=== PATIENT | male | born 1960 | race Caucasian/White ===

== ENCOUNTER 2019-05-11 15:16 | Inpatient (IN) ==
[2019-05-11] MEDS ORDERED: methylPREDNISolone SOD SUC 125 MG/2 ML VIAL IV STA (16:05)
[2019-05-11] MEDS ORDERED: ONDANSETRON 4 MG/2 ML VIAL IV STA (16:05)
[2019-05-11] MEDS ORDERED: AZITHROMYCIN INJ 500 MG in SODIUM CHLORIDE 0.9% 250 ML IV STA (16:15)
[2019-05-11] MEDS ORDERED: cefTRIAXone 1,000 MG in SODIUM CHLORIDE 0.9% 100 ML IV STA (16:15)
[2019-05-11] MEDS ORDERED: ALBUTEROL 2.5 MG/3 ML NEB RESP TX SCH (16:30)
[2019-05-11 16:47] LABS: Basophils # 0.1 10*3/uL (0.0-0.2); Basophils % 0.3 % (0.0-0.8); Hematocrit 48.6 VOL% (42.0-52.0); Hemoglobin 16.4 GM/DL (14.0-18.0); Immature Granulocytes % 0.8 %; Immature Granulocytes Absolute 0.21 #; Lymphocytes # 1.4 10*3/uL (1.4-4.0); Lymphocytes % 5.6 % (21.2-54.2); Mean Corpuscular HGB Conc 33.7 GM/DL (32-36); Mean Corpuscular Volume 89.8 FL (87-102); Mean Platelet Volume 9.7 FL (9.6-12.0); Monocytes % 5.6 % (1.7-12.7); Neutrophils % 87.7 % (38.7-73.9); Platelet Count 285 T/CUMM (130-400); Red Blood Count 5.41 MC/CUMM (3.8-5.5); Red Cell Distribution Width 13.7 % (9.3-17.3); White Blood Count 25.2 T/CUMM (4-12)
[2019-05-11 17:03] LABS: PT Patient Result 10.5 SECS (9.6-12.2); Partial Thromboplastin Time 26.4 SECS (20.8-36.0)
[2019-05-11 17:14] LABS: Alanine Aminotransferase 27 U/L (16-61); Albumin 3.4 G/DL (3.4-5.0); Alkaline Phosphatase 96 U/L (45-117); Aspartate Amino Transferase 15 U/L (0-37); Blood Urea Nitrogen 9 MG/DL (7-18); Calcium 8.5 MG/DL (8.5-10.1); Estimated Glom Filtration Rate 89 ML/MIN; Glucose 135 MG/DL (74-106); Troponin I < 0.015 NG/ML (0.00-0.045)
[2019-05-11 17:34] LABS: Barbiturates Screen,Urine Negative (Negative); Benzodiazepines Screen,Urine Negative (Negative); Cannabinoid Screen,Urine Negative (Negative); Opiate Screen,Urine Negative (Negative); Phencyclidine Screen,Urine Negative (Negative)
[2019-05-11 17:43] LABS: Apearance,Urine CLEAR (Clear); Bilirubin,Urine Negative (Negative); Blood, Urine Negative (Negative); Glucose,Urine (UA) Negative (Negative); Ketones,Urine Negative (Negative); Nitrite,Urine Negative (Negative); Protein,Urine Negative; RBC,Urine 4 /HPF (0-4); Urine Color Yellow (Yellow); Urine Specific Gravity 1.008 (1.001-1.035); Urine Urobilinogen < 2.0 EU/DL (0.2-1.0); WBC,Urine <1 /HPF (0-6)
[2019-05-11] MEDS ORDERED: ACETAMINOPHEN 325 MG TABLET PO PRN (18:27)
[2019-05-11] MEDS ORDERED: ONDANSETRON 4 MG/2 ML VIAL IV PRN (18:27)
[2019-05-11] MEDS ORDERED: NICOTINE 21 MG/24 HR PATCH TRANSDERM PRN (18:27)
[2019-05-11] MEDS ORDERED: DOCUSATE SODIUM 100 MG CAPSULE PO PRN (18:27)
[2019-05-11] MEDS ORDERED: ZALEPLON 5 MG CAPSULE PO PRN (18:27)
[2019-05-11 18:53] LABS: Hypochromasia Slight; Lymphocytes 9 % (20-55); Platelet Estimate Normal; Poikilocytosis 2+; Segmented Neutrophils 91 % (50-85); Total Cells Counted 100
[2019-05-11] MEDS ORDERED: ALBUTEROL/IPRATROPIUM 3 ML NEB RESP TX PRN (21:03)
[2019-05-11] MEDS: guaiFENesin/DM ER 600-30 MG TABLET PO SCH (21:45)
[2019-05-11] MEDS: ENOXAPARIN 40 MG/0.4 ML SYRINGE SUBCUT SCH (21:46)
[2019-05-11] MEDS: methylPREDNISolone SOD SUC 125 MG/2 ML VIAL IV SCH (21:46)
[2019-05-12] MEDS ORDERED: cefTRIAXone 1,000 MG in SYRINGE 1 EACH IV SCH (04:00)
[2019-05-12 06:22] LABS: Basophils % 0.1 % (0.0-0.8); Immature Granulocytes % 0.5 %; Immature Granulocytes Absolute 0.09 #; Lymphocytes # 1.7 10*3/uL (1.4-4.0); Lymphocytes % 9.3 % (21.2-54.2); Mean Platelet Volume 9.9 FL (9.6-12.0); Monocytes % 1.4 % (1.7-12.7); Neutrophils % 88.7 % (38.7-73.9); Platelet Count 267 T/CUMM (130-400); Red Blood Count 5.22 MC/CUMM (3.8-5.5); Red Cell Distribution Width 13.5 % (9.3-17.3); White Blood Count 18.6 T/CUMM (4-12)
[2019-05-12 07:05] LABS: Albumin 2.9 G/DL (3.4-5.0); Bilirubin,Total 0.5 MG/DL (0.2-1.0); Osmolality,Calculated 278.7 MOS/KG (273-304)
[2019-05-12] MEDS: methylPREDNISolone SOD SUC 125 MG/2 ML VIAL IV SCH ×3 (09:02→21:10)
[2019-05-12] MEDS: AZITHROMYCIN 250 MG TABLET PO SCH (09:03)
[2019-05-12] MEDS: guaiFENesin/DM ER 600-30 MG TABLET PO SCH ×2 (09:03→21:10)
[2019-05-12] MEDS: PANTOPRAZOLE 40 MG TABLET PO SCH (09:03)
[2019-05-12] MEDS: ENOXAPARIN 40 MG/0.4 ML SYRINGE SUBCUT SCH (21:10)
[2019-05-13] MEDS: methylPREDNISolone SOD SUC 125 MG/2 ML VIAL IV SCH (08:35)
[2019-05-13] MEDS: PANTOPRAZOLE 40 MG TABLET PO SCH (08:35)
[2019-05-13] MEDS: guaiFENesin/DM ER 600-30 MG TABLET PO SCH (08:35)
[2019-05-13] MEDS: AZITHROMYCIN 250 MG TABLET PO SCH (08:35)
[2019-05-13] MEDS ORDERED: cefTRIAXone 1,000 MG in SYRINGE 1 EACH IV SCH (09:00)
[2019-05-13 10:40] VITALS: BP 108/73
== END 2019-05-13 11:54 | disposition home or self-care (01) | DRG 190 ==
LOC: N.ED 15:16 → N.EDINP 18:27 → N.5E 19:48
PROVIDERS: ADMIT Family Medicine; ATTEND Family Medicine